=== PATIENT | female | born 1960 | race Caucasian/White ===

== ENCOUNTER → 2016-05-27 | Outpatient (CLI) | payer OTHER ==
[~2016-05-27] MED LIST: ALPR1TAB2 PO; CEFD300C2 PO; DIPH1TAB PO; IMMODIUM; METR500T PO; PERCODAN
== END | disposition home or self-care (01) ==
LOC: CFH 08:45
PROVIDERS: ATTEND Family Medicine
DX: Z12.31 Encounter for screening mammogram for malignant neoplasm of breast (principal); Z13.820 Encounter for screening for osteoporosis; M13.831 Other specified arthritis, right wrist; M13.861 Other specified arthritis, right knee; M13.88 Other specified arthritis, other site; M13.841 Other specified arthritis, right hand; M85.88 Other specified disorders of bone density and structure, other site; M48.03 Spinal stenosis, cervicothoracic region; M47.893 Other spondylosis, cervicothoracic region; M47.896 Other spondylosis, lumbar region; M48.06 Spinal stenosis, lumbar region; M15.0 Primary generalized (osteo)arthritis; M13.862 Other specified arthritis, left knee; S89.82XA Other specified injuries of left lower leg, initial encounter; Z78.0 Asymptomatic menopausal state; X58.XXXA Exposure to other specified factors, initial encounter; Y93.89 Activity, other specified; Y92.89 Other specified places as the place of occurrence of the external cause; Y99.8 Other external cause status
CPT/HCPCS: 72050; 72072; 72110; 73110; 73130; 73564; 77080; G0202